=== PATIENT | male | born 1940 | race Caucasian/White ===

== ENCOUNTER 2017-05-30 14:11 | Observation (INO) | payer OTHER ==
[~2017-05-30] VITALS: Ht 167.6 cm; Wt 76.5 kg
[~2017-05-30 14:11] MED LIST: AMLODIPINE-BEN1 EAC3 PO; BAYER CHILDREN'81 MG PO; COUMADIN5 MG PO; CRESTOR40 MG PO; LOTREL 10/21 CAPSULE PO; METOPROLOL SUCC50 MG PO; OMEGA Q PLUS; PROSTATE HEALT1 EACH PO; ST. JOSEPH ASPI81 MG PO; ULTRAM50 MG PO; VISION ADVANTAGE; WARFARIN SODIUM6 MG PO; [UNRECOGNIZED DRUG - OTHER] PO
[2017-05-30 15:26] LABS: HEMATOCRIT 44.4 % (38.0-50.0); HEMOGLOBIN 15.2 G/DL (12.5-16.6); MCH 29.1 PG (29.0-34.0); MCHC 34.2 G/DL (30.0-36.0); MCV 85.1 FL (86-99); PLATELET COUNT 215 K/uL (156-360); RBC DIS.WIDTH-CV 13.5 % (11.8-14.6); RBC DIS.WIDTH-SD 42.2 % (39-53); RED BLOOD COUNT 5.22 M/uL (4.00-5.50); WHITE BLOOD COUNT 10.8 K/uL (4.1-10.2)
[2017-05-30 15:35] LABS: CHLORIDE 102 mEq/L (99-109); POTASSIUM 4.9 mEq/L (3.7-5.4); SODIUM 137 mEq/L (136-147)
[2017-05-30 15:37] LABS: GLUCOSE 119 mg/dL (70-99); TOTAL PROTEIN 7.5 g/dL (6.4-8.3)
[2017-05-30 15:39] LABS: TOTAL BILIRUBIN 1.3 mg/dL (0.0-1.0)
[2017-05-30 15:40] LABS: ALKALINE PHOSPHATASE 57 IU/L (3-129)
[2017-05-30 15:41] LABS: GFR ESTIMATE (CALCULATED) > 59 mL/min/ (58.99-99999)
[2017-05-30 15:42] LABS: AST (GOT) 24 IU/L (2-34); UREA NITROGEN (BUN) 21 mg/dL (9-23)
[2017-05-30 15:44] LABS: ALT (GPT) 22 IU/L (3-49)
[2017-05-30 15:46] LABS: TROP-I INTERPRETATION NEGATIVE; TROPONIN-I < 0.01 ng/mL (0.0-0.30)
[2017-05-30 16:49] LABS: APPEARANCE CLEAR ((CLEAR)); BILIRUBIN NEGATIVE; BLOOD NEGATIVE; COLOR STRAW ((YELLOW)); GLUCOSE (STRIP) NEGATIVE; KETONES 5; LEUKOCYTES NEGATIVE; NITRITE NEGATIVE; PROTEIN (STRIP) 30; SPECIFIC GRAVITY 1.013 (1.000-1.030); UROBILINOGEN 0.2 MG/DL (0.2-1.0)
[2017-05-30] MEDS ORDERED: LOPRESSOR50 MG PO (17:23)
[2017-05-30 21:00] LABS: INTER. NORMALIZED RATIO 2.2
[2017-05-30 21:02] LABS: PTT 33.2 SEC (25-37)
[2017-05-30 21:59] VITALS: BP 143/67
[2017-05-30 22:30] LABS: TROP-I INTERPRETATION NEGATIVE; TROPONIN-I < 0.01 ng/mL (0.0-0.30)
[2017-05-31 03:58] VITALS: BP 126/61
[2017-05-31 06:01] LABS: BASOPHIL (%) 0.2 % (0-1); EOSINOPHIL (%) 0.6 % (0-5); EOSINOPHIL COUNT 0.1 K/uL (0-0.3); HEMOGLOBIN 14.2 G/DL (12.5-16.6); IMMATURE GRANULOCYTE (%) 0.3 % (0.0-0.7); LYMPHOCYTE (%) 12.4 % (15-42); LYMPHOCYTE COUNT 1.2 K/uL (1.0-2.8); MCH 28.9 PG (29.0-34.0); MCHC 33.8 G/DL (30.0-36.0); MCV 85.4 FL (86-99); MONOCYTE (%) 8.1 % (3-12); MONOCYTE COUNT 0.8 K/uL (0-0.8); NEUTROPHIL (%) 78.4 % (45-76); NEUTROPHIL COUNT 7.3 K/uL (1.8-6.4); PLATELET COUNT 204 K/uL (156-360); RBC DIS.WIDTH-CV 13.7 % (11.8-14.6); RBC DIS.WIDTH-SD 42.9 % (39-53); RED BLOOD COUNT 4.92 M/uL (4.00-5.50); WHITE BLOOD COUNT 9.3 K/uL (4.1-10.2)
[2017-05-31 06:13] LABS: INTER. NORMALIZED RATIO 2.2
[2017-05-31 06:24] LABS: TROP-I INTERPRETATION NEGATIVE; TROPONIN-I < 0.01 ng/mL (0.0-0.30)
[2017-05-31 06:26] LABS: ALBUMIN 3.7 G/DL (3.2-4.8); ALKALINE PHOSPHATASE 48 IU/L (3-129); ALT (GPT) 16 IU/L (3-49); AST (GOT) 18 IU/L (2-34); CHLORIDE 104 MEQ/L (99-109); DIRECT BILIRUBIN 0.2 mg/dL (0.0-0.3); GFR ESTIMATE (CALCULATED) > 59 mL/min/ (58.99-99999); GLUCOSE 102 mg/dL (70-99); SODIUM 140 MEQ/L (136-147); TOTAL BILIRUBIN 1.8 MG/DL (0.0-1.0); TOTAL PROTEIN 6.2 G/DL (6.4-8.3); UREA NITROGEN (BUN) 16 mg/dL (9-23)
[2017-05-31 08:00] VITALS: BP 157/72
[2017-05-31 11:28] VITALS: BP 112/57
== END 2017-05-31 13:00 | disposition home or self-care (01) ==
LOC: EME 14:11 → EDOF 20:23 → 5WEST 20:23 → EDOF 20:23 → ENRESERV 20:49 → 5WEST 21:31
PROVIDERS: Emergency Medicine; Hospitalist
DX: R55 Syncope and collapse (principal); I48.0 Paroxysmal atrial fibrillation; I10 Essential (primary) hypertension; I25.10 Atherosclerotic heart disease of native coronary artery without angina pectoris; Z95.1 Presence of aortocoronary bypass graft; I69.349 Monoplegia of lower limb following cerebral infarction affecting unspecified side; E04.1 Nontoxic single thyroid nodule; E78.5 Hyperlipidemia, unspecified; N40.0 Benign prostatic hyperplasia without lower urinary tract symptoms; Z79.01 Long term (current) use of anticoagulants; Z85.828 Personal history of other malignant neoplasm of skin; Z82.3 Family history of stroke; Z80.3 Family history of malignant neoplasm of breast; Z91.013 Allergy to seafood
CPT/HCPCS: 70450; 71045; 72125; 74176; 80048; 80053; 80076; 81003; 82948; 84484; 85025; 85027; 85610; 85730; 93005; 95819; 99281; 99285; G0378

== ENCOUNTER 2017-08-03 10:59 | Inpatient (IN) | payer OTHER ==
[~2017-08-03] VITALS: Ht 167.6 cm; Wt 70.0 kg
[~2017-08-03 10:59] MED LIST changes: +FISH OIL 1,0001 EAC7 PO; +LOPRESSOR50 MG PO; -OMEGA Q PLUS
[2017-08-03 11:24] LABS: BASOPHIL (%) 0.5 % (0-1); EOSINOPHIL (%) 1.8 % (0-5); EOSINOPHIL COUNT 0.1 K/uL (0-0.3); HEMATOCRIT 44.2 % (38.0-50.0); HEMOGLOBIN 15.1 G/DL (12.5-16.6); IMMATURE GRANULOCYTE (%) 0.4 % (0.0-0.7); LYMPHOCYTE (%) 14.1 % (15-42); LYMPHOCYTE COUNT 1.1 K/uL (1.0-2.8); MCHC 34.2 G/DL (30.0-36.0); MONOCYTE (%) 9.1 % (3-12); MONOCYTE COUNT 0.7 K/uL (0-0.8); NEUTROPHIL (%) 74.1 % (45-76); NEUTROPHIL COUNT 5.7 K/uL (1.8-6.4); PLATELET COUNT 205 K/uL (156-360); RBC DIS.WIDTH-CV 13.5 % (11.8-14.6); RBC DIS.WIDTH-SD 42.2 % (39-53); WHITE BLOOD COUNT 7.7 K/uL (4.1-10.2)
[2017-08-03 11:34] LABS: CHLORIDE 105 mEq/L (99-109); POTASSIUM 4.6 mEq/L (3.7-5.4); SODIUM 138 mEq/L (136-147)
[2017-08-03 11:35] LABS: INTER. NORMALIZED RATIO 1.2
[2017-08-03 11:36] LABS: GLUCOSE 128 mg/dL (70-99)
[2017-08-03 11:37] LABS: D-DIMER ELISA < 150.00 ng/mLDDU (<230); PTT 31.4 SEC (25-37)
[2017-08-03 11:39] LABS: GFR ESTIMATE (CALCULATED) > 59 mL/min/ (58.99-99999)
[2017-08-03 11:40] LABS: UREA NITROGEN (BUN) 14 mg/dL (9-23)
[2017-08-03 11:46] LABS: TROP-I INTERPRETATION NEGATIVE; TROPONIN-I < 0.01 ng/mL (0.0-0.30)
[2017-08-03] MEDS ORDERED: SIMVASTATIN20 MG PO (14:10)
[2017-08-03] MEDS ORDERED: XARELTO20 MG PO (14:10)
[2017-08-03] MEDS ORDERED: VITAMIN D31000 UNI2 PO (14:18)
[2017-08-03] MEDS ORDERED: VITAMIN E400 UNIT PO (14:18)
[2017-08-03] MEDS ORDERED: FISH OIL 1,0001 EAC7 PO (14:19)
[2017-08-03 14:48] VITALS: BP 132/81
[2017-08-03 19:00] VITALS: BP 142/84
[2017-08-03 20:12] LABS: TROP-I INTERPRETATION NEGATIVE; TROPONIN-I < 0.01 ng/mL (0.0-0.30)
[2017-08-03 23:45] VITALS: BP 151/95
[2017-08-04 03:38] VITALS: BP 144/77
[2017-08-04 05:30] LABS: HEMATOCRIT 44.9 % (38.0-50.0); HEMOGLOBIN 15.2 G/DL (12.5-16.6); MCHC 33.9 G/DL (30.0-36.0); MCV 85.7 FL (86-99); PLATELET COUNT 213 K/uL (156-360); RBC DIS.WIDTH-CV 13.7 % (11.8-14.6); RED BLOOD COUNT 5.24 M/uL (4.00-5.50)
[2017-08-04 05:31] VITALS: BP 124/77
[2017-08-04 05:48] LABS: TROP-I INTERPRETATION NEGATIVE; TROPONIN-I < 0.01 ng/mL (0.0-0.30)
[2017-08-04 05:49] LABS: CHLORIDE 105 MEQ/L (99-109); GFR ESTIMATE (CALCULATED) > 59 mL/min/ (58.99-99999); GLUCOSE 99 mg/dL (70-99); POTASSIUM 4.3 MEQ/L (3.7-5.4); SODIUM 141 MEQ/L (136-147); UREA NITROGEN (BUN) 12 mg/dL (9-23)
[2017-08-04 08:04] LABS: ALKALINE PHOSPHATASE 56 IU/L (3-129); ALT (GPT) 14 IU/L (3-49); AST (GOT) 19 IU/L (2-34); DIRECT BILIRUBIN 0.2 mg/dL (0.0-0.3); TOTAL BILIRUBIN 1.6 MG/DL (0.0-1.0); TOTAL PROTEIN 6.5 G/DL (6.4-8.3)
[2017-08-04 08:48] VITALS: BP 126/85
[2017-08-04 09:53] LABS: INTER. NORMALIZED RATIO 1.8
[2017-08-04 12:26] VITALS: BP 119/84
[2017-08-04 15:25] VITALS: BP 135/79
[2017-08-04 19:38] VITALS: BP 126/77
[2017-08-05] VITALS (9 sets, daily range): BP systolic 99–136; BP diastolic 62–77
[2017-08-05 05:29] LABS: BASOPHIL (%) 0.4 % (0-1); EOSINOPHIL (%) 3.1 % (0-5); EOSINOPHIL COUNT 0.3 K/uL (0-0.3); HEMATOCRIT 43.4 % (38.0-50.0); HEMOGLOBIN 14.4 G/DL (12.5-16.6); IMMATURE GRANULOCYTE (%) 0.3 % (0.0-0.7); LYMPHOCYTE (%) 14.2 % (15-42); LYMPHOCYTE COUNT 1.4 K/uL (1.0-2.8); MCH 28.2 PG (29.0-34.0); MCHC 33.2 G/DL (30.0-36.0); MCV 84.9 FL (86-99); MONOCYTE (%) 9.6 % (3-12); MONOCYTE COUNT 0.9 K/uL (0-0.8); NEUTROPHIL (%) 72.4 % (45-76); PLATELET COUNT 216 K/uL (156-360); RBC DIS.WIDTH-CV 13.3 % (11.8-14.6); RBC DIS.WIDTH-SD 41.7 % (39-53); RED BLOOD COUNT 5.11 M/uL (4.00-5.50); WHITE BLOOD COUNT 9.6 K/uL (4.1-10.2)
[2017-08-05 05:44] LABS: INTER. NORMALIZED RATIO 1.3
[2017-08-05 05:54] LABS: CHLORIDE 104 MEQ/L (99-109); CREATININE 1.1 MG/DL (0.6-1.3); GFR ESTIMATE (CALCULATED) > 59 mL/min/ (58.99-99999); GLUCOSE 100 mg/dL (70-99); POTASSIUM 4.1 MEQ/L (3.7-5.4); SODIUM 139 MEQ/L (136-147); UREA NITROGEN (BUN) 18 mg/dL (9-23)
[2017-08-06 04:30] VITALS: BP 98/52
[2017-08-06 07:59] VITALS: BP 112/70
[2017-08-06 11:19] VITALS: BP 101/58
[2017-08-06 15:30] VITALS: BP 109/75
[2017-08-06 19:54] VITALS: BP 107/63
[2017-08-07 00:12] VITALS: BP 111/62
[2017-08-07 03:21] VITALS: BP 105/95
[2017-08-07 06:07] LABS: GFR ESTIMATE (CALCULATED) > 59 mL/min/ (58.99-99999); GLUCOSE 106 mg/dL (70-99); UREA NITROGEN (BUN) 20 mg/dL (9-23)
[2017-08-07 07:31] LABS: CHLORIDE 105 MEQ/L (99-109); POTASSIUM 4.1 MEQ/L (3.7-5.4); SODIUM 138 MEQ/L (136-147)
[2017-08-07 10:59] VITALS: BP 116/69
[2017-08-07 15:08] VITALS: BP 123/68
[2017-08-07 20:45] VITALS: BP 111/60
[2017-08-08 01:00] VITALS: BP 126/74
[2017-08-08 04:10] VITALS: BP 103/61
[2017-08-08 09:03] VITALS: BP 107/73
[2017-08-08 12:00] VITALS: BP 136/88
[2017-08-08] MEDS ORDERED: LOPRESSOR100 M1 PO (12:47)
== END 2017-08-08 14:20 | disposition home or self-care (01) | DRG 244 ==
LOC: EME 10:59 → 4EAST 13:36 → EDOF 13:36 → 5WEST 13:36 → ENRESERV 13:37 → 5WEST 14:31 → ENRESERV 08-04 15:42 → 5WEST 08-04 16:37 → CANRESERV 08-07 08:49 → ENRESERV 08-07 08:49 → 4EAST 08-07 10:40
PROVIDERS: Emergency Medicine; Family Medicine; Hospitalist; Physician Assistant
DX: I44.2 Atrioventricular block, complete (principal); I48.0 Paroxysmal atrial fibrillation; R55 Syncope and collapse; E78.5 Hyperlipidemia, unspecified; I10 Essential (primary) hypertension; I25.10 Atherosclerotic heart disease of native coronary artery without angina pectoris; E04.1 Nontoxic single thyroid nodule; I49.5 Sick sinus syndrome; I48.92 Unspecified atrial flutter; I73.9 Peripheral vascular disease, unspecified; Z79.899 Other long term (current) drug therapy; Z86.73 Personal history of transient ischemic attack (TIA), and cerebral infarction without residual deficits; Z79.01 Long term (current) use of anticoagulants; Z95.1 Presence of aortocoronary bypass graft; Z85.828 Personal history of other malignant neoplasm of skin; Z79.82 Long term (current) use of aspirin
CPT/HCPCS: 70450; 71045; 80048; 80076; 83735; 84443; 84484; 85025; 85027; 85379; 85610; 85730; 93005; 99281; 99284; C1786; C1898; G0378; J0690; J1160; J1200; J2250; J3010; S0020

== ENCOUNTER 2017-08-13 10:26 | Emergency (ER) | payer OTHER ==
[~2017-08-13] VITALS: Ht 167.6 cm; Wt 73.5 kg
[~2017-08-13 10:26] MED LIST changes: +LOPRESSOR100 M1 PO; +SIMVASTATIN20 MG PO; +VITAMIN D31000 UNI2 PO; +VITAMIN E400 UNIT PO; +XARELTO20 MG PO
[2017-08-13 11:55] LABS: BASOPHIL (%) 0.5 % (0-1); EOSINOPHIL (%) 2.3 % (0-5); EOSINOPHIL COUNT 0.2 K/uL (0-0.3); HEMATOCRIT 39.9 % (38.0-50.0); HEMOGLOBIN 13.8 G/DL (12.5-16.6); IMMATURE GRANULOCYTE (%) 0.3 % (0.0-0.7); LYMPHOCYTE (%) 13.6 % (15-42); MCH 29.2 PG (29.0-34.0); MCHC 34.6 G/DL (30.0-36.0); MCV 84.5 FL (86-99); MONOCYTE (%) 9.6 % (3-12); MONOCYTE COUNT 0.7 K/uL (0-0.8); NEUTROPHIL (%) 73.7 % (45-76); NEUTROPHIL COUNT 5.6 K/uL (1.8-6.4); PLATELET COUNT 201 K/uL (156-360); RBC DIS.WIDTH-CV 13.1 % (11.8-14.6); RBC DIS.WIDTH-SD 40.9 % (39-53); RED BLOOD COUNT 4.72 M/uL (4.00-5.50); WHITE BLOOD COUNT 7.5 K/uL (4.1-10.2)
[2017-08-13 12:07] LABS: CHLORIDE 107 mEq/L (99-109); POTASSIUM 4.1 mEq/L (3.7-5.4); SODIUM 138 mEq/L (136-147)
[2017-08-13 12:09] LABS: GLUCOSE 116 mg/dL (70-99)
[2017-08-13 12:13] LABS: CREATININE 0.9 mg/dL (0.6-1.3); GFR ESTIMATE (CALCULATED) > 59 mL/min/ (58.99-99999); UREA NITROGEN (BUN) 17 mg/dL (9-23)
[2017-08-13 12:17] LABS: TROP-I INTERPRETATION NEGATIVE; TROPONIN-I < 0.01 ng/mL (0.0-0.30)
[2017-08-13 14:41] VITALS: BP 120/76
== END 2017-08-13 14:42 | disposition home or self-care (01) ==
LOC: EME 10:26
PROVIDERS: Emergency Medicine
DX: I48.92 Unspecified atrial flutter (principal); Z95.0 Presence of cardiac pacemaker; Z85.828 Personal history of other malignant neoplasm of skin; Z86.73 Personal history of transient ischemic attack (TIA), and cerebral infarction without residual deficits; I10 Essential (primary) hypertension; E78.5 Hyperlipidemia, unspecified; Z95.1 Presence of aortocoronary bypass graft; Z79.82 Long term (current) use of aspirin; Z79.01 Long term (current) use of anticoagulants; Z91.14 Patient's other noncompliance with medication regimen
CPT/HCPCS: 80048; 83735; 84484; 85025; 93005; 99281; 99283